=== PATIENT | female | born 1965 | race Caucasian/White ===

== ENCOUNTER 2016-03-06 20:20 | Emergency (ER) | payer OTHER ==
[~2016-03-06] VITALS: Ht 165.1 cm; Wt 128.8 kg
[~2016-03-06 20:20] MED LIST: ASCO1CAP3 PO; PRLSR20 PO
[2016-03-06 20:24] VITALS: TEMP 36.7; Ht 165.1 cm; Wt 128.8 kg
[2016-03-06 20:44] VITALS: O2SAT 95
[2016-03-06] MEDS ORDERED: [UNRECOGNIZED DRUG - CODE] PO (20:54)
--- NOTE | 2016-03-06 21:20 | DIAGNOSTIC IMAGING REPORT ---
CHEST ONE VIEW PORTABLE CLINICAL HISTORY: Cough and shortness of breath. COMPARISON STUDY: Chest radiograph and chest CT July 14, 2012. FINDINGS: Lung volumes are normal. There is no pneumothorax or pleural effusion. Cardiac size is normal. Mediastinal contours are normal. There is no evidence of pulmonary edema. IMPRESSION: No acute cardiopulmonary findings. Electronically signed by: Farzad Clarke M.D. 03/06/2016 9:18 PM Dictated Date/Time: 03/06/2016 9:17 PM
--- NOTE | 2016-03-06 21:38 | EMERGENCY ROOM VISIT NOTE ---
History Report prepared by Haylee: Wyatt Morales Under the Supervision of: Dr. Mely Morrow M.D. First contact with patient: 21:04 Chief Complaint: RESPIRATORY PROBLEMS Stated Complaint: TROUBLE BREATHING,COUGH Nursing Triage Summary: Pt reports approx 1700 this evening she began to feel short of breath, "and like my lungs just can't get air." Pt reports productive cough since before Holder. Hx of PNA and bronchitis. History of Present Illness The patient is a 50 year old female who presents to the Emergency Room with complaints of persistent shortness of breath since 1700 tonight. The patient also hears herself wheezing. The patient has had a productive cough for weeks. She does not have a history of asthma. The patient has been diagnosed with pneumonia multiple times. Source of History: patient Onset: 1700 tonight Position: other (respiratory) Quality: other (short of breath) Timing: other (persistent) Associated Symptoms: + cough Review of Systems See HPI for pertinent positives & negatives. A total of 10 systems reviewed and were otherwise negative. Past Medical & Surgical Medical Problems: (1) Cholecystectomy (2) Diverticulitis (3) Hysterectomy Family History Patient reports no known family medical history. Social History Smoking Status: Never Smoker Marital Status: Housing Status: lives with family Occupation Status: employed Current/Historical Medications Scheduled Ascorbic Acid (Vitamin C), 500 MG PO DAILY Diphenhydramine-Phenylephrine- (Theraflu Severe Cold Mult 25-10-500 mg), 30 ML PO DIRECTED Prednisone (Prednisone), 20 MG PO DAILY Allergies Coded Allergies: Oxycodone (Unverified Adverse Reaction, Intermediate, HALLUCINATIONS, NAUSEA, 03/06/16) Physical Exam Vital Signs Date Time Temp Pulse Resp B/P Pulse Ox O2 Delivery O2 Flow Rate FiO2 03/06/16 21:27 78 16 127/73 95 Room Air 03/06/16 20:47 72 03/06/16 20:44 94 Room Air 03/06/16 20:44 95 Room Air 03/06/16 20:24 36.7 80 20 155/102 94 Room Air Physical Exam CONSTITUTIONAL: No acute distress. HEENT: No icterus, moist mucous membranes NECK: No meningismus, trachea is midline. CARDIOVASCULAR: Regular rate, normal perfusion RESPIRATORY: Unlabored breathing. Mild wheezing in all rouse without rhonchi. GASTROINTESTINAL: Non-tender GENITOURINARY: No flank tenderness MUSCULOSKELETAL: Full range of motion NEUROLOGIC: No acute gross focal deficits. PSYCHIATRIC: Normal affect SKIN: Normal for ethnicity. Medical Decision & Procedures ER Provider Diagnostic Interpretation: X-ray results as stated below per interpretation by me and the radiologist. CHEST ONE VIEW PORTABLE CLINICAL HISTORY: Cough and shortness of breath. COMPARISON STUDY: Chest radiograph and chest CT July 14, 2012. FINDINGS: Lung volumes are normal. There is no pneumothorax or pleural effusion. Cardiac size is normal. Mediastinal contours are normal. There is no evidence of pulmonary edema. IMPRESSION: No acute cardiopulmonary findings. Electronically signed by: Farzad Clarke M.D. 03/06/2016 9:18 PM Dictated Date/Time: 03/06/2016 9:17 PM Medications Administered Medications (Trade) Dose Ordered Sig/Devi Route Start Time Stop Time Status Last Admin Dose Admin Prednisone (PredniSONE TAB) 20 mg NOW STAT PO 03/06/16 21:37 03/06/16 21:39 DC 03/06/16 21:58 20 MG Albuterol (Ventolin Hfa Inhaler) 60 puffs STK-MED ONCE INH 03/06/16 21:55 03/06/16 21:57 DC 03/06/16 21:59 60 PUFFS ED Course 2134: Past medical records reviewed. The patient was evaluated in room C7. A complete history and physical examination was performed. 2136: Prednisone 20 mg PO. 2144: Explained everything to the patient. She verbalized understanding and agreement of the treatment plan. The patient is ready for discharge. 0000: Albuterol 2 puffs INH. Medical Decision Differential diagnosis includes bronchitis. 50-year-old presented to the emergency department for evaluation of cough and is concerned about the potential for wheezing. She has a history of asthma. No fevers with possible Adolfo review of systems. (-) CXR. Mild wheezing in all rouse without rhonchi. Patient given albuterol inhaler, prednisone MDI and Rx. Advised to wait 1-2 weeks before considering antibiotics. Patient in agreement with plan. Impression Primary Impression: Bronchitis Scribe Attestation The scribe's documentation has been prepared under my direction and personally reviewed by me in its entirety. I confirm that the note above accurately reflects all work, treatment, procedures, and medical decision making performed by me. Departure Information Dispostion Home / Self-Care Prescriptions Prednisone (Prednisone) 20 Mg Tab 20 MG PO DAILY for 4 Days, #4 TAB Prov: Mely Morrow MD 03/06/16 Referrals Lisa Sanchez D.O. (PCP) Forms HOME CARE DOCUMENTATION FORM, IMPORTANT VISIT INFORMATION, WORK / SCHOOL INSTRUCTIONS Patient Instructions Chest Cold (Bronchitis) - [facility], ED Wheezing, [facility]
[2016-03-06] MEDS ORDERED: PRED20TA PO (21:39)
[2016-03-06] MEDS ORDERED: ALBUTEROL HFA 8 GM INHALER INH ONE (21:55)
[2016-03-06 22:01] VITALS: BP 116/72; PULSE 77; O2SAT 93
[2016-03-07] MEDS ORDERED: ALBUTEROL HFA 8 GM INHALER INH ONE
== END 2016-03-06 22:01 | disposition home or self-care (01) ==
LOC: C.EDB 20:21 → C.EDC 22:01
DX: J40 Bronchitis, not specified as acute or chronic (principal); K57.92 Diverticulitis of intestine, part unspecified, without perforation or abscess without bleeding; Z90.710 Acquired absence of both cervix and uterus; Z90.49 Acquired absence of other specified parts of digestive tract; Z79.899 Other long term (current) drug therapy; Z88.5 Allergy status to narcotic agent

== ENCOUNTER 2016-09-15 22:10 | Emergency (ER) | payer OTHER ==
[~2016-09-15 22:10] MED LIST changes: -PRLSR20 PO; +[UNRECOGNIZED DRUG - CODE] PO
[2016-09-15 22:16] VITALS: TEMP 36.5; Ht 165.1 cm
--- NOTE | 2016-09-15 23:00 | DIAGNOSTIC IMAGING REPORT ---
RIGHT KNEE 3 VIEWS CLINICAL HISTORY: Right knee injury Right pain COMPARISON: None. DISCUSSION: Moderate degenerative change all major joint compartments. No significant joint effusion. Moderate reactive osteophytic changes throughout. There is no evidence for soft tissue swelling. IMPRESSION: Moderate degenerative change. No acute bony abnormality. The above report was generated using voice recognition software. It may contain grammatical, syntax or spelling errors. Electronically signed by: Troy Lagos M.D. 09/15/2016 10:59 PM Dictated Date/Time: 09/15/2016 10:59 PM
[2016-09-15] MEDS ORDERED: TRAM-10 PO (23:25)
[2016-09-15] MEDS ORDERED: TRAMADOL HCL 50 MG HOME PACK PO ONE (23:30)
[2016-09-15 23:52] VITALS: BP 142/87; PULSE 80; O2SAT 96
--- NOTE | 2016-09-16 00:42 | EMERGENCY ROOM VISIT NOTE ---
ED Visit Note First contact with patient: 22:24 CHIEF COMPLAINT: knee pain HISTORY OF PRESENT ILLNESS: This 51-year-old female patient presents to the emergency department after sustaining an injury to the right knee earlier today. She states that she has had some mild discomfort over the past week, however today she felt a popping sensation over the anterior aspect of the knee. The patient denies any other injuries besides their knee. The patient is without swelling or bruising. There is pain with walking. They rate the pain as dull and 7/10. No numbness or tingling. No previous injuries to this knee. No ankle, foot or hip pain. REVIEW OF SYSTEMS: A 6 system review of systems was completed with positives and pertinent negatives listed in the HPI. ALLERGIES: Oxycodone MEDICATIONS: See EMR PMH: See EMR SOCIAL HISTORY: Lives with significant other PHYSICAL EXAM: Vital Signs: Reviewed Nurse's notes, vital signs stable. GENERAL : White female, no acute distress, but appears in pain, well-developed, well- nourished. MENTAL STATUS: Alert, oriented to person place and time, and cooperative. MUSCULOSKELETAL: The right knee is minimally swollen. There is no ecchymosis. There is no joint effusion present. The patient is tender laterally and anteriorly. There is no obvious joint line tenderness. The patella does not subluxate. Range of motion is normal. Strength of the quads and hamstrings is 4/5. Mark's is negative. Olga's and Anterior Drawer tests are negative. There is no laxity with varus and valgus stressing. The foot and toes are warm and well-perfused. Dorsalis pedis pulse 2+. Sensation to pain and light touch is intact. Capillary refill less than 2 seconds. RIGHT KNEE 3 VIEWS CLINICAL HISTORY: Right knee injury Right pain COMPARISON: None. DISCUSSION: Moderate degenerative change all major joint compartments. No significant joint effusion. Moderate reactive osteophytic changes throughout. There is no evidence for soft tissue swelling. IMPRESSION: Moderate degenerative change. No acute bony abnormality. EMERGENCY DEPARTMENT COURSE: Physical exam and history were performed. Nursing notes and EMR were reviewed. The patient appears to have right knee pain for the past day. On examination she does have some tenderness anteriorly and laterally. There is no obvious deformity and she has been able to ambulate with some discomfort. X-rays were obtained and reviewed by myself and radiology as showing no acute bony abnormality. She does have some moderate degenerative changes, which was expected. The patient will be placed in an Daquan wrap and given crutches. She has evidently tolerated tramadol in the past and will be given a very short prescription for this. The patient has followed with [facility], and will be referred back to their service. The patient was invited back to the ER with any new, worsening, or concerning symptoms. She was otherwise invited back to the ER anytime and was pleased with plan of care. Problem List Medical Problems: (1) Cholecystectomy Status: Resolved (2) Diverticulitis Status: Chronic (3) Hysterectomy Status: Resolved Current/Historical Medications Scheduled PRN Tramadol (Ultram), 50 MG PO Q8H PRN for Pain Allergies Coded Allergies: Oxycodone (Unverified Adverse Reaction, Intermediate, HALLUCINATIONS, NAUSEA, 09/15/16) Vital Signs Date Time Temp Pulse Resp B/P (MAP) Pulse Ox O2 Delivery O2 Flow Rate FiO2 09/15/16 23:52 80 18 142/87 96 09/15/16 22:16 36.5 81 16 133/76 95 Room Air Medications Administered Medications (Trade) Dose Ordered Sig/Devi Route Start Time Stop Time Status Last Admin Dose Admin Tramadol HCl (Ultram Home Pack) 1 homepack UD ONCE PO 09/15/16 23:30 09/15/16 23:31 DC 09/15/16 23:51 1 HOMEPACK Departure Information Impression Primary Impression: Right knee pain Dispostion Home / Self-Care Condition GOOD Prescriptions Tramadol (Ultram) 50 Mg Tab 50 MG PO Q8H Y for Pain for 3 Days, #9 TAB Prov: Jose Rafael French PA-C 09/15/16 Referrals Jose Rafael Cash M.D. Forms HOME CARE DOCUMENTATION FORM, IMPORTANT VISIT INFORMATION Patient Instructions My [facility] Additional Instructions You were seen and evaluated today on an emergency basis only. This is not a substitute for, or an effort to provide, complete comprehensive medical care. It is not possible to recognize and treat all injuries or illnesses in a single emergency department visit. For this reason it is recommended that you followup with Orthopedics, Dr. Cash 's office, by telephone in the morning to arrange a follow-up visit. Let them know you were seen in the ER to help facilitate care. For baseline pain relief you may alternate ibuprofen and acetaminophen every 4 hours for pain control. Take 600 mg ibuprofen (Advil) and then 4 hours later take 1000 mg acetaminophen (Tylenol). Do not take more than 3000 mg acetaminophen in a single day. You may take tramadol 50 mg every 8 hours as needed for breakthrough pain. Do not drink or drive while on this medication. Wear your Daquan wrap and use crutches until otherwise cleared by orthopedics You are welcome to return to the emergency department anytime with new, worsening, or concerning symptoms.
== END 2016-09-15 23:56 | disposition home or self-care (01) ==
LOC: C.EDB 22:11 → C.EDA 23:56
DX: M25.561 Pain in right knee (principal); Z90.49 Acquired absence of other specified parts of digestive tract; Z90.710 Acquired absence of both cervix and uterus